=== PATIENT | male | born 1995 | race Caucasian/White ===

== ENCOUNTER → 2017-04-13 | Outpatient (CLI) | payer BC | LOC: COL.LAB 11:36 | DX: Z11.3 Encounter for screening for infections with a predominantly sexual mode of transmission (principal) ==

== ENCOUNTER 2018-06-30 03:08 | Emergency (ER) | payer BC ==
[~2018-06-30] VITALS: Ht 180.3 cm; Wt 72.7 kg
[2018-06-30 03:13] VITALS: BP 145/93; PULSE 92; TEMP 98.6
== END 2018-06-30 04:49 | disposition home or self-care (01) ==
LOC: COL.ER 03:08
DX: S81.011A Laceration without foreign body, right knee, initial encounter (principal); W19.XXXA Unspecified fall, initial encounter; Y92.410 Unspecified street and highway as the place of occurrence of the external cause

== ENCOUNTER 2018-07-10 17:42 | Emergency (ER) | payer BC ==
[2018-07-10 17:48] VITALS: BP 131/83; PULSE 66; TEMP 99
== END 2018-07-10 17:53 | disposition home or self-care (01) ==
LOC: COL.ER 17:42
DX: S81.011D Laceration without foreign body, right knee, subsequent encounter (principal); X58.XXXD Exposure to other specified factors, subsequent encounter